=== PATIENT | female | born 1980 | race Caucasian/White ===

== ENCOUNTER 2019-10-08 16:36 | Outpatient (CLI) | payer OTHER | END 2019-10-08 16:37 | disposition home or self-care (01) | LOC: COV 16:36 | PROVIDERS: ATTEND Family Medicine | DX: R05 Cough (principal); R50.9 Fever, unspecified | CPT/HCPCS: 81599 ==

== ENCOUNTER 2019-11-18 18:25 | Outpatient (CLI) | payer OTHER | END 2019-11-18 18:26 | disposition home or self-care (01) | LOC: COV 18:25 | PROVIDERS: ATTEND Family Medicine | DX: R50.9 Fever, unspecified (principal); R53.83 Other fatigue | CPT/HCPCS: 81599 ==

== ENCOUNTER 2022-08-20 15:56 | Outpatient (CLI) | payer OTHER ==
[2022-08-20 20:43] LABS: BASOPHILS # (AUTO) 0.1 10^3/uL (0.0-0.1); BASOPHILS % (AUTO) 0.3 %; EOSINOPHILS % (AUTO) 0.1 %; HCT - HEMATOCRIT 42.7 % (37.0-47.0); HGB - HEMOGLOBIN 14.6 g/dL (12.0-16.0); LYMPHOCYTES % (AUTO) 4.4 %; MEAN CORPUSCULAR HEMOGLOBIN 30.2 pg (27.0-31.0); MEAN CORPUSCULAR HGB CONC 34.2 g/dL (32.0-36.0); MEAN CORPUSCULAR VOLUME 88.4 fL (81.0-99.0); MEAN PLATELET VOLUME 10.8 fL (7.9-10.8); MONOCYTES # (AUTO) 0.4 10^3/uL (0.0-1.0); MONOCYTES % (AUTO) 1.8 %; NEUTROPHILS # (AUTO) 20.5 10^3/uL (1.5-6.6); NEUTROPHILS % (AUTO) 92.8 %; PLT - PLATELET COUNT 309 10^3/uL (130-450); RED BLOOD COUNT 4.83 10^6/uL (4.20-5.40); RED CELL DISTRIBUTION WIDTH 12.9 % (12.0-15.0); WHITE BLOOD COUNT 22.1 x10^3/uL (4.8-10.8)
[2022-08-20 20:51] LABS: BILIRUBIN,URINE NEGATIVE (NEGATIVE); GLUCOSE, URINE (UA) NEGATIVE (NEGATIVE); KETONES,URINE (UA) NEGATIVE (NEGATIVE); LEUKOCYTE ESTERASE, URINE NEGATIVE (NEGATIVE); NITRITE,URINE NEGATIVE (NEGATIVE); OCCULT BLOOD,URINE TRACE-INTA (NEGATIVE); PROTEIN,URINE TRACE mg/dL (NEGATIVE); UROBILINOGEN,URINE 0.2 (NORMAL) E.U./dL (NORMAL)
[2022-08-20 20:53] LABS: ALBUMIN/GLOBULIN RATIO 0.6 (1.0-2.2); BILIRUBIN,TOTAL 0.8 mg/dL (0.2-1.0); CALCIUM 9.1 mg/dL (8.5-10.3); CREATININE 0.8 mg/dL (0.4-1.0); TOTAL PROTEIN 7.7 g/dL (6.7-8.2)
[2022-08-20 21:09] LABS: BACTERIA,URINE Many /HPF (None Seen); CLARITY,URINE HAZY (CLEAR); RBC,URINE 0-5 /HPF (0-5); SQUAMOUS EPITHELIAL CELL,UR MOD Squamous (<= Few)
[2022-08-20 21:10] LABS: SLIDE REVIEW? Indicated
[2022-08-20 21:15] LABS: PLATELET ESTIMATE, MANUAL NORMAL (130-450,000) (NORMAL); PLATELET MORPHOLOGY NORMAL APPEARANCE (NORMAL); RBC MORPHOLOGY (MULTIPLE) NORMAL APPEARANCE (NORMAL); WBC MORPHOLOGY (MULTIPLE) 1+ TOXIC GRANULATION (NORMAL)
[2022-08-20 21:16] LABS: DIFFERENTIAL COMMENT MANUAL=AUTO DIFF
== END 2022-08-20 23:59 | disposition home or self-care (01) ==
LOC: LAB.N 15:56
PROVIDERS: ATTEND Nurse Practitioner
DX: B34.9 Viral infection, unspecified (principal)
CPT/HCPCS: 36415; 80053; 81001; 81599; 83615; 83625; 85025; 87040; 87086